=== PATIENT | female | born 1945 | race Caucasian/White ===

== ENCOUNTER 2021-03-17 10:55 | Outpatient (CLI) | payer MEDICARE, SELFPAY ==
--- NOTE | 2021-03-17 11:09 | US_ITS ---
WS: [id number] RENAL ULTRASOUND HISTORY: RENAL FAILURE COMPARISON: None available. TECHNIQUE: 2-D and color Doppler imaging of the kidney submitted. Right kidney: 9.4 cm x 5.4 cm x 4.9 cm. Normal echogenicity with no hydronephrosis or mass. Left kidney: 9.0 cm x 5.2 cm x 5.7 cm. Normal echogenicity with no hydronephrosis or mass. Aorta: Normal. Urinary Bladder: Normal distention. US/US renal BI* [id number] IMPRESSION: Normal renal ultrasound.
== END 2021-03-17 10:56 | disposition home or self-care (01) ==
LOC: RAD 11:02
PROVIDERS: Visit Provider Family Medicine
DX: N19 Unspecified kidney failure (principal)
CPT/HCPCS: 76770

== ENCOUNTER 2021-05-03 15:38 | Outpatient (CLI) | payer MEDICARE, SELFPAY ==
--- NOTE | 2021-05-03 15:49 | XR_ITS ---
WS: [id number] Right hip, 2 views, 05/03/2021 Clinical Data: RT. HIP PAIN Comparison: None. Findings: No fractures or dislocations are seen. The right hip joint is intact. The soft tissues are not remar kable. The adjacent pelvis is normal. There is an acetabular lip. No significant narrowing, sclerosis or cyst formation is seen. XR/XR hip RT 2-3V wo/w pel* [id number] Impression: Negative right hip. Tonnis classification: grade 1: sclerosis of femoral head and acetabulum or sli ght joint space narrowing or slight lipping at joint margins
--- NOTE | 2021-05-03 15:50 | XR_ITS ---
WS: [id number] Right knee, 3 views, 05/03/2021 Clinical Data: RT. KNEE PAIN Comparison: None. Findings: No fractures or dislocations are seen. There is narrowing of the lateral joint compartment with calci fication of the lateral articular cartilage. There is narrowing of the medial joint compartment. Mini mal posterior patellar spurring is seen.. The soft tissues are unremarkable. There is calcification in the wall of the superficial femoral artery in the distal branches. XR/XR knee RT 3V* [id number] Impression: 1. Moderate joint space narrowing of the medial and lateral joint compartments with irregularity of the posterior patella. 2. Calcification of the lateral knee joint articular cartilage. Kellgren-Jcarlos Classification: grade 2 (minimal): definite osteophytes and p ossible joint space narrowing
--- NOTE | 2021-05-03 15:51 | XR_ITS ---
WS: [id number] Lumbar spine, 3 views, 05/03/2021 Clinical Data: LOWER BACK PAIN Comparison: None. Findings: No compression fractures or subluxation is seen. There is degenerative disc narrowing at all levels f rom L1-L2 through L5-S1. There is osteoarthritic spurring from L1 through L5. There is a slight dextr oscoliosis of the lumbar spine. The transverse processes and SI joints are normal. There is calcification in the wall of the abdominal aorta but no aneurysm is seen. XR/XR lumbar spine 2-3V* [id number] Impression: 1. Negative for compression fracture. 2. Degenerative disc narrowing and osteoarthritic change of all the lumbar vert ebral bodies.
== END 2021-05-03 15:39 | disposition home or self-care (01) ==
PROVIDERS: PCP Family Medicine; Visit Provider Family Medicine
DX: M25.561 Pain in right knee (principal); M25.551 Pain in right hip; M54.5 Low back pain; W19.XXXA Unspecified fall, initial encounter
CPT/HCPCS: 72100; 73502; 73562

== ENCOUNTER 2021-08-25 16:44 | Emergency (ER) | payer OTHER, MEDICARE, SELFPAY ==
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
[2021-08-25 16:57] VITALS: BP 112/73; PULSE 85; RESP 14; O2SAT 94; BMI 23.3
[2021-08-25 17:04] LABS: Basophils # 0.1 10^3/uL (0.0-0.1); Basophils % 0.8 %; Eosinophils # 0.5 10^3/uL (0.0-0.8); Eosinophils % 7.3 %; Hematocrit 34.6 % (37.0-47.0); Hemoglobin 11.2 g/dL (11.5-15.3); Lymphocytes % 41.6 %; Mean Corpuscular HGB Conc 32.4 g/dL (30.0-36.0); Mean Corpuscular Volume 92.8 fl (81-99); Mean Platelet Volume 10.7 fL (7.4-10.4); Monocytes # 0.6 10^3/uL (0.2-0.9); Monocytes % 7.8 %; Neutrophils # 3.07 10^3/uL (1.8-7.7); Neutrophils % 42.1 %; Nucleated Red Blood Cells % 0 %; Platelet Count 235 10^3/cmm (130-400); Red Blood Count 3.73 10^6/uL (4.1-5.3); Red Cell Distribution Width 14.8 % (12.1-15.1); White Blood Count 7.3 10^3/uL (4.0-10.0)
[2021-08-25 17:36] LABS: Alanine Aminotransferase 8 U/L (0-33); Albumin Level 4.3 g/dL (3.5-5.2); Alkaline Phosphatase 52 IU/L (35-105); Aspartate Amino Transferase 14 U/L (0-32); Blood Urea Nitrogen 23 mg/dL (8-23); Calcium 9.7 mg/dL (8.5-10.5); Carbon Dioxide 24 mmol/L (22-29); Chloride 103 mmol/L (98-107); Globulin 3.1 g/dL (1.3-4.6); Glucose 149 mg/dL (65-115); Osmolality Calculated 300 mOsm/kg (285-295); Sodium 142 mmol/L (136-145); Total Bilirubin 0.5 mg/dL (0.15-1.2); Total Protein 7.4 g/dL (6.6-8.7)
[2021-08-25] MEDS: iodixanol 320 mg/mL 100mL Btl IV (18:59)
[2021-08-25 19:15] VITALS: BP 126/75; PULSE 79; RESP 18; O2SAT 98
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
[2021-08-25 19:59] VITALS: BP 126/84; BP 128/73; BP 141/75; PULSE 79; PULSE 89; PULSE 94
[2021-08-25 20:05] VITALS: BP 138/72; O2SAT 97
[2021-08-25 20:39] LABS: Glucose Urine UA Norm (Normal); Ketones Urine Negative (Negative); Protein Urine Neg (Negative); Urine Appearance Cloudy (CLEAR); Urine Color Straw (Yellow); pH Urine 5 (5-7)
[2021-08-25 20:40] LABS: Add Urine Microscopic? YES; Bacteria Urine 3+ /hpf; Bilirubin Urine Neg (Negative); Blood Urine Trace (Negative); Leukocyte Esterase Urine 2+ (Negative); Mucus Urine 1+ /hpf; Nitrate Urine Positive (Negative); RBC Urine 0-4 /hpf (0-2); Squamous Epithelial Cell Urine 15-25 /hpf (0-5); Urobilinogen Urine Norm (Negative); WBC Urine TOO NUMEROUS TO CNT /hpf (0-5)
[2021-08-25 20:41] LABS: Add Urine Culture? No
[2021-08-25 21:07] VITALS: BP 133/85; PULSE 95; RESP 22; O2SAT 95
== END 2021-08-25 21:09 | disposition home or self-care (01) ==
PROVIDERS: Family Medicine; Emergency Provider Emergency Medicine; PCP Family Medicine
DX: S22.22XA Fracture of body of sternum, initial encounter for closed fracture (principal); V89.2XXA Person injured in unspecified motor-vehicle accident, traffic, initial encounter
CPT/HCPCS: 70450; 71260; 72125; 73130; 73562; 74177; 80053; 81001; 85025; 99284; Q9967

== ENCOUNTER 2021-10-29 17:19 | Emergency (ER) | payer MEDICARE, SELFPAY ==
[2021-10-29 17:55] VITALS: BP 122/65; PULSE 79; RESP 16; TEMP 36.6; O2SAT 98; BMI 23.3
--- NOTE | 2021-10-29 17:59 | ED_ITS ---
HPI - Skin/Abscess/Foreign Bdy General: Chief complaint: Skin/Abscess/Foreign Body Stated complaint: R side of face is swollen Time Seen by Provider: 10/29/21 17:59 History of Present Illness: HPI narrative: 76-year-old female comes in today with complaints of 2 lesions to the right upper arm and the right side of face. Patient suspects that she was bit by a insect. On exam patient appears well. Patient appears no acute distress. Patient reports itching to the wounds. The lesion to the right upper arm yesterday and the lesion to the face this morning. Patient denies any fever, pain or discomfort. Review of Systems General: Reports: 10 or more systems reviewed and unremarkable except in HPI and below Skin/Breast: Reports: other (Itching skin lesions) Physical Exam Const: COMMON NORMALS: no acute distress and patient oriented x3 GENERAL APPEARANCE: cooperative HENMT: COMMON NORMALS: TM's normal bilaterally and Normal external nose present HEAD & SCALP: normal to inspection and other (2 cm area of swelling with central lesion) NOSE: Normal external nose present TYMPANIC MEMBRANE: TM's normal bilaterally MOUTH: Normal oral and palatal mucosa present THROAT: posterior oropharynx normal Eye: GENERAL EYE: appearance normal, both eyes and all related structures Neck/C-Spine: COMMON NORMALS: full ROM Lymph: LYMPHATIC: no lymphadenopathy noted Chest: COMMONS NORMALS: normal inspection of the chest Resp: COMMON NORMALS: normal respiratory effort EFFORT & INSPECTION: Yes able to speak in complete sentences Cardio: COMMON NORMALS: regular rate and regular rhythm RATE: regular rate RHYTHM: regular rhythm GI: COMMON NORMALS: non-tender : COMMON NORMALS: Yes no CVA tenderness BLADDER/KIDNEY EXAM: Yes no CVA tenderness Back/Pelvis: COMMON NORMALS: no CVA tenderness and thoracic and lumbar spine normal to inspection Extremity: NARRATIVE EXTREMITY EXAM: 4 cm of redness with a central lesion to the right upper arm. Neuro: COMMON NORMALS: patient oriented x3 and moves all extremities Psych: COMMON NORMALS: mental status grossly normal and cooperative Skin: COMMON NORMALS: no rashes or lesions noted GENERAL SKIN EXAM: no rashes or lesions noted Course Vital Signs: Vital signs: Vital Signs Temperature 97.8 F 10/29/21 17:55 Pulse Rate 79 10/29/21 17:55 Respiratory Rate 16 10/29/21 17:55 Blood Pressure 122/65 10/29/21 17:55 Pulse Oximetry 98 10/29/21 17:55 MDM - Skin/Abscess/Foreign Bdy MDM Narrative: Medical decision making narrative: Them for 2 lesions noticing them yesterday. Patient reported increased swelling today. Patient appears well. Patient appears in no acute distress. Patient has some slight redness and swelling to each of the lesions. Oropharynx is normal. Bilateral TMs are normal. Respirations are even lungs are clear to auscultation. No ballottement are noted to lesions. Differential diagnosis includes but not limited to local reaction to insect bite, contact dermatitis, cellulitis. Due to no pain or fever I suspect more of a local reaction to insect bite. Most likely this is due to a common house spider. Patient will be started on some steroids and recommend follow-up with primary care in 3 days for recheck. Patient reported understanding agreed to plan. Discharge Plan Discharge Patient Disposition: Home Clinical Impression: Insect bites Qualifiers: Encounter type: initial encounter Site of insect bite: head Site of insect bite of head: other part Qualified Code(s): S00.86XA - Insect bite (nonvenomous) of other part of head, initial encounter Condition: Stable Prescriptions: New prednisone 20 mg tablet 20 mg PO BID 5 Days Qty: 10 RF: 0 mupirocin 2 % ointment 1 applic topical BID Qty: 22 RF: 0 prednisone 20 mg tablet 20 mg PO BID 5 Days Qty: 10 RF: 0 hydrocortisone 2.5 % cream 1 applic topical TID Qty: 28.35 RF: 0 No Action hydrocodone-acetaminophen 5-325 mg tablet 1 tab PO Q8H PRN (Reason: pain) Qty: 10 RF: 0 Discharge Orders: Discharge ED (Routine); Ordered 10/29/21 Ordered By: Wes Piedra Referrals: Maikel Iniguez DO [Primary Care Provider] - Discharge Diet: Usual diet Discharge Activity: Increase activity as tolerated Patient Instructions: Insect Bite or Sting (ED), Opioid Safety Activity Restrictions/Additional Instructions: Continue with Benadryl as needed for itching. Use hydrocortisone cream 2-1/2% 3 times a day to help with swelling and irritation. Use mupirocin ointment twice a day for prophylaxis treatment against infection. Take prednisone 20 mg twice a day by mouth for the next 5 days to help with swelling of the wounds. Drink plenty of water with medication. Use ointment and cream until wounds are healed. Follow-up with primary care in 3 days for recheck. Return to the ER for new concerns such as high fever greater than 100.4, increased pain and discomfort to the wounds, warmth or heat in the wounds. Coding Level of Care Code ED Furniture And Bedding Inspector for Jarrod Campbell
[2021-10-29 19:04] VITALS: BP 122/65; PULSE 79; RESP 16; TEMP 36.6; O2SAT 98
[2021-10-29] MEDS: dexamethasone 10 mg/mL INJ IM (19:04)
== END 2021-10-29 19:04 | disposition home or self-care (01) ==
PROVIDERS: Emergency Provider Nurse Practitioner Family; PCP Family Medicine
DX: S00.86XA Insect bite (nonvenomous) of other part of head, initial encounter (principal); X58.XXXA Exposure to other specified factors, initial encounter
CPT/HCPCS: 96372; 99283; J1100

== ENCOUNTER 2022-02-26 12:47 | Outpatient (CLI) | payer MEDICARE, SELFPAY ==
--- NOTE | 2022-02-26 13:04 | MM_ITS ---
WS: [id number] BILATERAL 3D TOMOSYNTHESIS DIGITAL SCREENING MAMMOGRAPHY WITH CAD CLINICAL INFORMATION: SCREENING HISTORY: Screening mammogram. No current complaints. COMPARISON: TECHNIQUE: Bilateral CC and MLO views. FINDINGS: Scattered fibroglandular densities bilaterally. A few incidental punctate and secretory calcification s. No suspicious focal mass, asymmetry, calcifications, or architectural distortion. No evidence of m alignancy. MM/[place] [id number] IMPRESSION: BI-RADS: 2-Benign FOLLOW UP: 1 Year Follow-up Recommend return to annual screening mammography.
== END 2022-02-26 12:48 | disposition home or self-care (01) ==
LOC: RAD 12:47
PROVIDERS: PCP Family Medicine; Visit Provider Family Medicine
DX: Z12.31 Encounter for screening mammogram for malignant neoplasm of breast (principal)
CPT/HCPCS: 77063; 77067

== ENCOUNTER 2022-05-16 13:47 | Outpatient (CLI) | payer MEDICARE, SELFPAY ==
--- NOTE | 2022-05-16 14:14 | XR_ITS ---
WS: [id number] Right hip, 2 views, AP pelvis, 05/16/2022 Clinical Data: ARTHRITIS/R HIP PAIN Comparison: Right hip, 05/03/2021. Findings: No fractures or dislocations are seen. The hip joint is intact. The soft tissues are not remarkable. The adjacent pelvis is normal. The right hip shows an acetabular lip. The hip joint shows no erosion, sclerosis, narrowing or fragme ntation of the right femoral head. There is vascular calcification of the superficial femoral artery. XR/XR hip RT 2-3V wo/w pel* [id number] Impression: Old osteoarthritis of the right hip. Tonnis classification: grade 1: sclerosis of femoral head and acetabulum or sli ght joint space narrowing or slight lipping at joint margins
== END 2022-05-16 13:48 | disposition home or self-care (01) ==
PROVIDERS: PCP Family Medicine; Visit Provider Family Medicine
DX: H93.19 Tinnitus, unspecified ear (principal); M16.11 Unilateral primary osteoarthritis, right hip
CPT/HCPCS: 73502

== ENCOUNTER → 2022-06-07 13:15 | Outpatient (BNVA) | payer MEDICARE, SELFPAY | PROVIDERS: PCP Family Medicine; Referring Provider Family Medicine; Visit Provider Physician Assistant | DX: M43.16 Spondylolisthesis, lumbar region (principal); M51.37 Other intervertebral disc degeneration, lumbosacral region; M53.3 Sacrococcygeal disorders, not elsewhere classified | CPT/HCPCS: 72110; 73502; 73560; 73565; 99203; 99204 ==

== ENCOUNTER 2022-08-02 08:10 | Outpatient (CLI) | payer MEDICARE, SELFPAY ==
--- NOTE | 2022-08-02 08:30 | MR_ITS ---
WS: [id number] MRI LUMBAR SPINE NONCONTRAST TECHNIQUE: Sagittal T1, T2 and STIR imaging. Axial T1 and T2 imaging. CLINICAL INFORMATION: back pain COMPARISON: None. FINDINGS: Mild lumbar curve. No acute compression. Slight anterolisthesis L4 on L5. Disc space narrowing with e ndplate degenerative changes at L2-L3 and L3-L4. L1-L2: Normal. L2-L3: Mild disc bulging and osteophytic ridging. Mild facet arthropathy. Spinal canal and foramen ar e patent. L3-L4: Mild disc bulging with moderate central canal stenosis. Impingement on the traversing L4 nerve roots bilaterally. Moderate facet arthropathy. Mild to moderate LEFT and no significant RIGHT forami nal narrowing. L4-L5: Mild disc bulging with impingement RIGHT subarticular recess and traversing RIGHT L5 nerve goran t. Moderate facet arthropathy. Foramen are patent. Mild central canal stenosis. Moderate facet arthro rebeca. Small LEFT subarticular disc herniation posterior to the L4 vertebral body. L5-S1: Mild disc bulging with osteophytic ridging. Slight retrolisthesis. Impingement traversing S1 n erve roots bilaterally. Mild facet arthropathy. Mild bilateral foraminal narrowing RIGHT greater than LEFT. Visualized pelvic bony structures: Normal. Paravertebral soft tissues: Normal. MR/MR lumbar spine wo con* [id number] IMPRESSION: 1. Mild lumbar curve. No acute compression. 2. Moderate central canal stenosis L3-L4 due to disc bulging with facet arthro rebeca ligamentum flavum hypertrophy. Impingement traversing L4 nerve roots bila terally. Crowding of the cauda equina nerve rootlets. 3. Disc bulging L4-L5 impinges the traversing L5 nerve roots in the subarticul ar recess. Mild central canal stenosis. 4. Disc osteophyte complex L5-S1 impinges the traversing S1 nerve roots in the subarticular recess RIGHT greater than LEFT. 5. Mild to moderate foraminal narrowing worse at LEFT L3-L4 with LEFT foramina l protrusion. Mild to moderate RIGHT L5-S1 bony foraminal narrowing. 6. Moderate facet arthropathy L3-L5.
== END 2022-08-02 08:11 | disposition home or self-care (01) ==
LOC: RAD 08:12
PROVIDERS: PCP Family Medicine; Visit Provider Physician Assistant
DX: M51.36 Other intervertebral disc degeneration, lumbar region (principal); M48.061 Spinal stenosis, lumbar region without neurogenic claudication
CPT/HCPCS: 72148

== ENCOUNTER → 2022-08-14 09:53 | Outpatient (BNVA) | payer MEDICARE, SELFPAY | PROVIDERS: PCP Family Medicine; Visit Provider Family Medicine | DX: E11.9 Type 2 diabetes mellitus without complications (principal); I10 Essential (primary) hypertension; E78.5 Hyperlipidemia, unspecified; R68.89 Other general symptoms and signs | CPT/HCPCS: 80053; 80061; 82607; 83036; 84443; 85025 ==

== ENCOUNTER → 2022-08-30 15:39 | Outpatient (BNVA) | payer MEDICARE, SELFPAY | PROVIDERS: PCP Family Medicine; Visit Provider Family Medicine | DX: E11.9 Type 2 diabetes mellitus without complications (principal); I10 Essential (primary) hypertension; E78.5 Hyperlipidemia, unspecified; R68.89 Other general symptoms and signs; D64.9 Anemia, unspecified | CPT/HCPCS: 82270 ==

== ENCOUNTER → 2022-11-22 10:16 | Outpatient (BNVA) | payer MEDICARE, SELFPAY | PROVIDERS: PCP Family Medicine; Visit Provider Clinical Nurse Specialist Adult Health | DX: B34.9 Viral infection, unspecified (principal); J02.9 Acute pharyngitis, unspecified | CPT/HCPCS: 87400; 87426; 87880 ==

== ENCOUNTER → 2023-02-05 11:31 | Outpatient (BNVA) | payer MEDICARE, SELFPAY | PROVIDERS: PCP Family Medicine; Visit Provider Family Medicine | DX: E78.5 Hyperlipidemia, unspecified (principal); I10 Essential (primary) hypertension; R68.89 Other general symptoms and signs; R60.9 Edema, unspecified; D64.9 Anemia, unspecified; E11.9 Type 2 diabetes mellitus without complications | CPT/HCPCS: 80053; 80061; 82607; 83036; 85025 ==

== ENCOUNTER → 2023-04-11 10:55 | Outpatient (BNVA) | payer MEDICARE, SELFPAY | PROVIDERS: PCP Clinical Nurse Specialist Adult Health; Visit Provider Clinical Nurse Specialist Adult Health | DX: D64.9 Anemia, unspecified (principal); R60.0 Localized edema; D50.9 Iron deficiency anemia, unspecified; E11.9 Type 2 diabetes mellitus without complications | CPT/HCPCS: 82607; 82728; 82746; 83550; 83880 ==

== ENCOUNTER → 2023-04-17 06:40 | Outpatient (BNVA) | payer MEDICARE, SELFPAY | PROVIDERS: PCP Clinical Nurse Specialist Adult Health; Visit Provider Clinical Nurse Specialist Adult Health | DX: D50.9 Iron deficiency anemia, unspecified (principal); D64.9 Anemia, unspecified | CPT/HCPCS: 82270 ==

== ENCOUNTER → 2023-06-13 12:40 | Outpatient (BNVA) | payer MEDICARE, SELFPAY | PROVIDERS: PCP Family Medicine; Visit Provider Clinical Nurse Specialist Adult Health | DX: D64.9 Anemia, unspecified (principal); I10 Essential (primary) hypertension | CPT/HCPCS: 80053; 82728; 83550; 84443; 85025 ==

== ENCOUNTER 2023-06-18 14:32 | Emergency (ER) | payer MEDICARE, SELFPAY ==
[2023-06-18 14:39] VITALS: BP 128/71; PULSE 96; RESP 14; TEMP 36.3; O2SAT 95; BMI 26.1
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
[2023-06-18 15:51] VITALS: BP 132/76; PULSE 91; O2SAT 96
[2023-06-18] MEDS: hydrocortisone 1% cream 28 gm 1 APPLIC TOPICAL (15:52)
== END 2023-06-18 16:12 | disposition home or self-care (01) ==
PROVIDERS: Emergency Provider Physician Assistant; PCP Clinical Nurse Specialist Adult Health
DX: S30.861A Insect bite (nonvenomous) of abdominal wall, initial encounter (principal); S80.862A Insect bite (nonvenomous), left lower leg, initial encounter; S80.861A Insect bite (nonvenomous), right lower leg, initial encounter; S40.862A Insect bite (nonvenomous) of left upper arm, initial encounter; S40.861A Insect bite (nonvenomous) of right upper arm, initial encounter; W57.XXXA Bitten or stung by nonvenomous insect and other nonvenomous arthropods, initial encounter; I10 Essential (primary) hypertension; E78.5 Hyperlipidemia, unspecified; E11.9 Type 2 diabetes mellitus without complications; Z79.84 Long term (current) use of oral hypoglycemic drugs
CPT/HCPCS: 99283

== ENCOUNTER → 2023-07-18 12:36 | Outpatient (BNVA) | payer MEDICARE, SELFPAY | PROVIDERS: PCP Clinical Nurse Specialist Adult Health; Visit Provider Clinical Nurse Specialist Adult Health | DX: I10 Essential (primary) hypertension (principal) | CPT/HCPCS: 80048 ==

== ENCOUNTER → 2024-01-08 15:47 | Outpatient (BNVA) | payer MEDICARE, SELFPAY | PROVIDERS: PCP Clinical Nurse Specialist Adult Health; Visit Provider Clinical Nurse Specialist Adult Health | DX: D64.9 Anemia, unspecified (principal); E11.9 Type 2 diabetes mellitus without complications; E55.9 Vitamin D deficiency, unspecified | CPT/HCPCS: 80053; 82306; 83036; 83540; 85025 ==

== ENCOUNTER → 2024-05-08 11:05 | Outpatient (BNVA) | payer MEDICARE, SELFPAY | PROVIDERS: PCP Clinical Nurse Specialist Adult Health; Visit Provider Clinical Nurse Specialist Adult Health | DX: E55.9 Vitamin D deficiency, unspecified (principal) | CPT/HCPCS: 82306 ==

== ENCOUNTER → 2024-07-08 15:18 | Outpatient (BNVA) | payer MEDICARE, SELFPAY | PROVIDERS: PCP Clinical Nurse Specialist Adult Health; Visit Provider Clinical Nurse Specialist Adult Health | DX: D64.9 Anemia, unspecified (principal); I10 Essential (primary) hypertension; E11.9 Type 2 diabetes mellitus without complications; E55.9 Vitamin D deficiency, unspecified | CPT/HCPCS: 80053; 80061; 82306; 82728; 82746; 83036; 83540; 85025 ==

== ENCOUNTER → 2025-01-21 15:21 | Outpatient (BNVA) | payer MEDICARE, SELFPAY | PROVIDERS: PCP Family Medicine; Visit Provider Family Medicine | DX: Z13.6 Encounter for screening for cardiovascular disorders (principal); I10 Essential (primary) hypertension; E78.5 Hyperlipidemia, unspecified; E11.9 Type 2 diabetes mellitus without complications; D64.9 Anemia, unspecified; Z91.89 Other specified personal risk factors, not elsewhere classified | CPT/HCPCS: 80053; 80061; 83036; 83880; 84443; 85025 ==

== ENCOUNTER → 2025-06-22 12:27 | Outpatient (BNVA) | payer MEDICARE, SELFPAY | PROVIDERS: PCP Family Medicine; Visit Provider Family Medicine | DX: D64.9 Anemia, unspecified (principal); N18.31 Chronic kidney disease, stage 3a; E11.9 Type 2 diabetes mellitus without complications; I10 Essential (primary) hypertension; E78.5 Hyperlipidemia, unspecified | CPT/HCPCS: 80053; 80061; 83036; 85025 ==

== ENCOUNTER → 2025-11-02 14:16 | Outpatient (BNVA) | payer MEDICARE, SELFPAY | PROVIDERS: PCP Family Medicine; Visit Provider Family Medicine | DX: I10 Essential (primary) hypertension (principal); E78.5 Hyperlipidemia, unspecified; E11.9 Type 2 diabetes mellitus without complications; D64.9 Anemia, unspecified | CPT/HCPCS: 80053; 83036; 85025 ==